=== PATIENT | male | born 1960 | race Caucasian/White ===

== ENCOUNTER 2022-10-07 07:13 | Observation (INO) | payer SELFPAY ==
[2022-10-07] MEDS ORDERED: Acetaminophen 500 MG Tab PO ONE (07:45)
[2022-10-07] MEDS ORDERED: Ondansetron 4 MG/2 ML SDV ONE (07:56)
[2022-10-07] MEDS ORDERED: Dexamethasone 4 MG/ML SDV ONE (07:56)
[2022-10-07] MEDS ORDERED: Glycopyrrolate 0.2 MG/ML 5 ML MDV ONE (07:56)
[2022-10-07] MEDS ORDERED: Succinylcholine 200 MG/10 ML MDV ONE (07:56)
[2022-10-07] MEDS ORDERED: Neostigmine Methylsulfate 1 MG/ML 5 ML Syringe ONE (07:56)
[2022-10-07] MEDS ORDERED: Rocuronium 50 MG/5 ML Vial ONE ×2 (07:56→13:14)
[2022-10-07] MEDS ORDERED: Propofol 200 MG/20 ML SDV ONE (07:56)
[2022-10-07] MEDS ORDERED: fentaNYL 250 MCG/5 ML SDV ONE ×2 (07:56→11:57)
[2022-10-07] MEDS: Lactated Ringers 1,000 ML IV SCH ×3 (07:58→18:49)
[2022-10-07] MEDS ORDERED: Indocyanine Green 25 MG SDV INJECT ONE (08:00)
[2022-10-07 08:10] LABS: ESTIMATED GFR 68 mL/min (>60)
[2022-10-07] MEDS ORDERED: cefTRIAXone 2 GM in Sodium Chloride 0.9% 50 ML IV ONE (09:00)
[2022-10-07] MEDS ORDERED: metroNIDAZOLE/Normal Saline 500 MG in Premix Bag 1 BAG IV ONE (09:00)
[2022-10-07] MEDS ORDERED: Lactated Ringers 1,000 ML ONE (11:38)
[2022-10-07] MEDS ORDERED: Labetalol 20 MG/4 ML Syringe ONE (12:19)
[2022-10-07] MEDS: Bupivacaine 0.5%/EPINEPHrine 1:200,000 50 ML MDV ONE ×2 (13:52→14:15)
[2022-10-07] MEDS ORDERED: Docusate Sodium 100 MG Cap PO PRN (14:30)
[2022-10-07] MEDS ORDERED: Ondansetron 4 MG/2 ML SDV IVPUSH PRN (14:30)
[2022-10-07] MEDS ORDERED: fentaNYL 100 MCG/2 ML SDV ONE (14:33)
[2022-10-07] MEDS ORDERED: hydrOXYzine HCL 100 MG/2 ML SDV IM ONE (14:53)
[2022-10-07] MEDS ORDERED: fentaNYL 50 MCG/ML SDV IVPUSH ONE (14:53)
[2022-10-07] MEDS: Acetaminophen 500 MG Tab PO SCH ×2 (16:42→23:00)
[2022-10-08] MEDS: oxyCODONE 5 MG Tab PO PRN ×2 (01:04→14:10)
[2022-10-08] MEDS: Lactated Ringers 1,000 ML IV SCH (01:05)
[2022-10-08 06:51] LABS: ESTIMATED GFR 75 mL/min (>60)
[2022-10-08] MEDS: Acetaminophen 500 MG Tab PO SCH (07:28)
[2022-10-08] MEDS ORDERED: Pantoprazole 40 MG Tab.CR*POM PO SCH (07:30)
== END 2022-10-08 14:23 | disposition home or self-care (01) ==
LOC: JP.SDS 07:13 → JP.MS 14:30
PROVIDERS: ADMIT Surgery; ATTEND Student in an Organized Health Care Education/Training Program
DX: K80.10 Calculus of gallbladder with chronic cholecystitis without obstruction (principal); Z79.899 Other long term (current) drug therapy; Z98.890 Other specified postprocedural states
CPT/HCPCS: 36415; 47562; 80053; 83735; 84100; 85027; 85610; 88304; 93005; A9270; J0330; J0696; J1100; J2405; J2704; J2710; J3010; J3410; J3490; J7120